=== PATIENT | female | born 1980 | race Caucasian/White ===

== ENCOUNTER 2018-04-30 22:38 | Emergency (ER) | payer MEDICAID ==
[~2018-04-30] VITALS: Ht 165.1 cm; Wt 104.5 kg
[2018-04-30 23:09] VITALS: Ht 165.1 cm; Wt 104.5 kg
[2018-04-30] MEDS ORDERED: CLOTRIM ANTIFUN15 GM (23:10)
[2018-04-30] MEDS ORDERED: NEURONTIN 400400 MG (23:10)
[2018-04-30] MEDS ORDERED: ELOCON 0.1% OIN15 GM (23:10)
[2018-04-30] MEDS ORDERED: XANAX0.5 MG (23:10)
[2018-04-30] MEDS ORDERED: ROBAXIN500 MG (23:10)
[2018-04-30] MEDS ORDERED: KENALOG 0.1 % O15 GM (23:11)
[2018-05-01] MEDS ORDERED: MEDROL DOSE PACK4 MG PO (01:21)
[2018-05-01] MEDS ORDERED: ATARAX 25 MG TA25 MG PO (01:21)
[2018-05-01 01:47] VITALS: BP 137/89
== END 2018-05-01 01:48 | disposition home or self-care (01) ==
LOC: D.ER 22:38
DX: L20.9 Atopic dermatitis, unspecified (principal); L51.1 Stevens-Johnson syndrome